=== PATIENT | male | born 1990 | race Caucasian/White ===

== ENCOUNTER 2017-06-02 08:48 | Emergency (ER) | payer OTHER ==
[2017-06-02] MEDS ORDERED: LIDOCAINE HCL 20 ML UDC PO ONE (09:00)
[2017-06-02] MEDS ORDERED: MAG HYDROX/ALUMINUM HYD/SIMETH 30 ML UDC PO ONE (09:00)
[2017-06-02] MEDS ORDERED: SUCRALFATE 1 G/10 ML UDC PO ONE (09:00)
--- NOTE | 2017-06-02 09:03 | ERNOTE ---
Chest Pain/Cardiac HPI Chief Complaint: Chest Pain Time Seen by Provider: 06/02/17 08:55 Source: patient Exam Limitations: no limitations Immunizations: IMMUNIZATION HX Immunizations Up to Date Yes History of Influenza Vaccine No Hx Pneumococcal Vaccination No Allergies/Adverse Reactions: Allergies No Known Allergies Allergy (Verified 06/02/17 08:58) Narrative: Patient had stayed up late last night working on his four barrow, was drinking mountain dew and ate doughnuts. He went to sleep at 03:00 and woke up at 07:30 with central chest pain, no other associated symptoms, pain gets worse with laying down Date (Duration): 06/02/17 Time (Timing): 07:30 Location: central Chest Pain Radiation: no radiation Activities at Onset: sleep Modifying Factors - Worsens: Present: position. Absent: movement Nitro Today/Relief: no nitro taken today Aspirin Treatment Today: no aspirin today Associated Symptoms: Present: denies symptoms. Absent: dizziness, cough, shortness of breath, diaphoresis, palpitations, nausea, vomiting, abdominal pain Prior Chest Pain/Cardiac Workup: Denies: prior chest pain, heart attack Review of Systems - Review of Systems Constitutional: Absent: recent illness, fever ENT: Present: sore throat. Absent: nose congestion, nasal drainage Respiratory: Absent: shortness of breath Cardiology: Present: See HPI, chest pain Gastrointestinal/Abdominal: Absent: nausea, vomiting, abdominal pain Genitourinary: Present: no symptoms reported Neurological: Absent: headache, weakness, numbness - Patient's Past Medical History Patient History - Medical: No pertinent hx Patient History - Cardiac/Respiratory: No pertinent hx Patient History - Cancer: No Hx of Cancer Patient History - Surgical Procedures: No surgical history Patient History - Other: None - Family History Father Family History - Medical: Diabetes Type 2 Family History - Cancer: No pertinent family hx - Social History Living Situations: home Abuse History: No History of abuse Psych History: No pertinent hx Smoking Status: Current every day smoker Have you smoked in the past 12 months: Yes Do you dip or chew tobacco: No Patient requests Smoking Cessation Consult: No Alcohol Use: rarely Drug Use: none, marijuana - Immunizations Immunizations Up to Date: Yes Hx Pneumococcal Vaccination: No History of Influenza Vaccine: No Physical Exam - Physical Exam General Appearance: Present: wd/wn, alert, no apparent distress Ears, Nose, Throat: Present: normal ENT inspection, normal pharynx Respiratory: Present: no respiratory distress, normal breath sounds, no accessory muscle use, chest nontender, lungs clear Cardiovascular/Chest: Present: regular rate, rhythm, no murmur Gastrointestinal/Abdominal: Present: normal bowel sounds, nontender, nondistended, soft Extremity Exam: Present: no edema Neurological Exam: Present: alert, oriented, normal mood/affect Skin Exam: Present: normal color, warm/dry ED Progress - Results and Orders Patient's Lab Results:: I have reviewed the patient's lab results. - Vital Signs Patient's Vital Signs:: I have reviewed the patient's vital signs. Vital Signs: Vital Signs 06/02/17 08:51 Temperature 36.6 C Pulse Rate 84 Respiratory 18 Rate O2 Sat by Pulse 98 Oximetry - EKG EKG: NSR, other - no acute changes EKG read: Interp. by me - X-Ray X-Ray #1 X-Ray: chest - bronchitis, see report Interpretation: Reviewed by me - Progress/Reassessment Chief Complaint: Chest Pain Progress Note-Subjective: 06/02/17 10:58 pain resolved after GI cocktail, discussed results Departure - Departure Clinical Impression: GERD (gastroesophageal reflux disease) Qualifiers: Esophagitis presence: esophagitis presence not specified Qualified Code(s): K21.9 - Gastro-esophageal reflux disease without esophagitis Disposition: Home self-care Condition: Good Instructions: Indigestion, [id number] Additional Instructions: use over the counter antacids as needed Referrals: Ernesto Montiel DO [Staff Physician] -
[2017-06-02 09:08] LABS: Hemoglobin 13.1 gm/dL (13.5-18.0); Mean Cell Volume 87.9 fl (78-100); Mean Corpuscular Hemoglobin 28.8 pg (27-31); Mean Corpuscular Hgb Conc 32.8 g/dl (32-36); Mean Platelet Volume 9.3 fl (6.0-9.5); Neutrophil # 10.3 K/mm3 (1.3-6.0); Neutrophil % 71.8 % (42-75.0); Platelet Count 303 K/mm3 (150-450); Red Blood Count 4.55 M/mm3 (4.7-6.0); Red Cell Distribution Width 13.4 % (11.5-14.0); White Blood Count 14.3 K/mm3 (4.0-10.5)
[2017-06-02 09:27] LABS: ALT 35 U/L (19-67); AST 15 U/L (0-48); Albumin * 3.5 gm/dl (3.4-5.0); Alkaline Phosphatase * 71 U/L (50-170); Anion Gap 11.5 mmol/L (6.8-13.8); BUN/Creatinine Ratio 13.7 (9.0-21.6); Bilirubin, Total 0.2 mg/dL (0.0-1.1); Blood Urea Nitrogen 14 mg/dL (6-23); Ca. Corrected For Albumin 8.3 mg/dL (8.4-10.2); Calcium * 8.2 mg/dL (7.9-10.9); Carbon Dioxide 27.2 mmol/L (24-32.6); Chloride 106 mmol/L (97-106); Glucose * 121 mg/dL (70-110); Potassium 3.7 mmol/L (3.4-4.6); Sodium 141 mmol/L (132-142); Total Protein 6.6 gm/dL (6.2-8.2)
[2017-06-02 09:28] LABS: Troponin I Less than 0.017 ng/ml (0.00-0.10)
[2017-06-02 10:58] VITALS: BP 127/79
== END 2017-06-02 11:02 | disposition home or self-care (01) ==
LOC: ER 08:48
DX: K21.9 Gastro-esophageal reflux disease without esophagitis (principal); F17.200 Nicotine dependence, unspecified, uncomplicated